=== PATIENT | female | born 1970 | race Caucasian/White ===

== ENCOUNTER 2020-07-22 05:28 | Day surgery (SDC) | payer BC ==
[2020-07-22] MEDS ORDERED: Dextrose 5%-Lactated Ringers 1,000 ML IV SCH (06:00)
[2020-07-22] MEDS ORDERED: fentaNYL 100 MCG/2 ML SDV ONE (07:07)
[2020-07-22] MEDS ORDERED: Midazolam 1 MG/ML 2 ML SDV ONE (07:07)
[2020-07-22] MEDS ORDERED: Propofol 200 MG/20 ML SDV ONE (07:07)
[2020-07-22] MEDS ORDERED: Glycopyrrolate 0.2 MG/ML 2 ML SDV IVPUSH ONE (07:15)
--- NOTE | 2020-07-28 15:53 | OR ---
DATE OF PROCEDURE: 07/22/2020 SURGEON: Tawanda James MD PREOPERATIVE DIAGNOSES: Intermittent dysphagia and heartburn. POSTOPERATIVE DIAGNOSES: 1. Intermittent dysphagia and heartburn. 2. Moderately large hiatal hernia with actively ulcerated gastroesophageal reflux disease. OPERATIVE PROCEDURE: Upper gastrointestinal endoscopy with: 1. Biopsy of esophagogastric junction. 2. Biopsies of antrum for CLOtest. ANESTHESIA: IV sedation. INDICATIONS FOR PROCEDURE: A 49-year-old presenting with worsening problems with gastroesophageal reflux disease. She has some intermittent dysphagia, although a relatively minor complaint on close questioning, but does have some active heartburn. She previously had been on Zantac which she was taken off because of the concerns regarding carcinogens present in the medications and has been on Protonix for a few days, but has noted only a slight improvement of her symptoms with that. Plan is to proceed with upper GI endoscopy with biopsies and/or dilation as indicated. Potential risks including bleeding and perforation were discussed, and the patient wishes to proceed. DETAILS OF PROCEDURE: The patient was taken to the operating room, placed in a left lateral decubitus position. IV sedation was administered after which the upper GI endoscope was passed orally through the length of the esophagus and stomach with retroflexion view of the fundus and thereafter through the pyloric channel and into the proximal duodenum. Findings included normal hypopharynx, larynx, upper esophageal sphincter. Within the esophageal body, there was no furrowing or suggestion of eosinophilic esophagitis. At the EG junction, the patient did have a moderately large hiatal hernia measuring around 4 to 5 cm. This had actively ulcerated gastroesophageal reflux disease with several linear ulcers extending up from the esophagogastric junction. No stricturing was seen. Overall, the esophagogastric junction was completely wide open, so at this point, there was no significant barrier function between the stomach and the esophagus. The remainder of the stomach and duodenal exams were unremarkable. At this point, biopsies were obtained from esophagogastric junction, sent for histologic evaluation, and then biopsies also then obtained from the antrum and sent for CLOtest for H. pylori. Minimal bleeding from the biopsy sites was seen and the procedure was then concluded. The patient was taken to the recovery room in satisfactory condition. The patient expressed some interest in not having to be on medications long-term and potential surgical options were discussed with the patient and . We will see the patient back on Wednesday, i.e., in 48 hours to discuss the treatment options somewhat further. Tawanda James MD /[id number]
== END 2020-07-22 09:42 | disposition home or self-care (01) ==
LOC: JP.SDS 05:28
PROVIDERS: ATTEND Surgery
DX: K22.8 Other specified diseases of esophagus (principal); K44.9 Diaphragmatic hernia without obstruction or gangrene; K21.9 Gastro-esophageal reflux disease without esophagitis; K22.10 Ulcer of esophagus without bleeding; Z88.5 Allergy status to narcotic agent; Z88.6 Allergy status to analgesic agent
CPT/HCPCS: 43239; 87081; 88305; J2250; J2704; J3010; J3490; J7121

== ENCOUNTER 2020-07-26 08:52 | Inpatient (IN) | payer BC ==
[~2020-07-26 08:52] MED LIST: Bupivacaine 0.5% 50 ML MDV ONE; Dexamethasone 4 MG/ML SDV ONE; Glycopyrrolate 0.2 MG/ML 5 ML MDV ONE; Lidocaine 1% with EPINEPHrine 1:100,000 50 ML MDV ONE; Neostigmine Methylsulfate 1 MG/ML 5 ML Syringe ONE; Ondansetron 4 MG/2 ML SDV ONE; Propofol 200 MG/20 ML SDV ONE; Rocuronium 50 MG/5 ML Vial ONE; Succinylcholine 200 MG/10 ML MDV ONE; fentaNYL 250 MCG/5 ML SDV ONE
[2020-07-26] MEDS ORDERED: Celecoxib 200 MG Cap PO ONE (09:00)
[2020-07-26] MEDS ORDERED: Scopolamine 1.5 MG Transdermal Patch TOP SCH (09:15)
[2020-07-26] MEDS ORDERED: Dextrose 5%-Lactated Ringers 1,000 ML IV SCH ×2 (10:00→14:00)
[2020-07-26] MEDS ORDERED: ceFAZolin 2 GM in Premix Bag 1 BAG IV ONE (10:15)
[2020-07-26] MEDS ORDERED: Ropivacaine 38 ML, dexAMETHasone 8 MG, EPINEPHrine 0.4 MG, Sodium Chloride 0.9% 39.6 ML NERVRT SCH ×4 (11:00)
[2020-07-26] MEDS ORDERED: fentaNYL 250 MCG/5 ML SDV ONE (11:37)
[2020-07-26] MEDS ORDERED: fentaNYL 100 MCG/2 ML SDV ONE (12:14)
[2020-07-26] MEDS ORDERED: Labetalol 20 MG/4 ML Syringe ONE (12:28)
[2020-07-26] MEDS ORDERED: Ketamine 500 MG/5 ML MDV IV SCH (12:30)
[2020-07-26] MEDS ORDERED: Ketamine 50 MG in Sodium Chloride 0.9% 49.5 ML IV SCH (12:30)
[2020-07-26] MEDS ORDERED: Lactated Ringers 1,000 ML ONE (12:45)
[2020-07-26] MEDS ORDERED: HYDROmorphone 0.5 MG/0.5 ML Syringe IVPUSH PRN (14:00)
[2020-07-26] MEDS ORDERED: Ondansetron 4 MG/2 ML SDV IVPUSH PRN (14:01)
[2020-07-26] MEDS ORDERED: HYDROmorphone 1 MG/ML Syringe IV PRN (14:01)
[2020-07-26] MEDS: Pantoprazole 40 MG Vial IV SCH (16:00)
[2020-07-26] MEDS: Metoclopramide 10 MG/2 ML SDV IV SCH ×2 (16:00→22:59)
[2020-07-26] MEDS: VERIFY SCOP PATCH TOP SCH (16:01)
[2020-07-26] MEDS: ceFAZolin 2 GM in Premix Bag 1 BAG IV SCH (17:53)
[2020-07-26] MEDS: HYDROmorphone 2 MG Tab PO PRN ×2 (18:05→22:59)
[2020-07-27] MEDS: ceFAZolin 2 GM in Premix Bag 1 BAG IV SCH ×2 (02:42→10:32)
[2020-07-27] MEDS: HYDROmorphone 2 MG Tab PO PRN ×4 (02:44→22:16)
[2020-07-27] MEDS ORDERED: methylPREDNISolone Sodium Succinate 40 MG/1 ML SDV IVPUSH ONE (06:44)
[2020-07-27] MEDS: Metoclopramide 10 MG/2 ML SDV IV SCH ×2 (07:27→15:37)
[2020-07-27] MEDS ORDERED: Dextrose 5%-Lactated Ringers 1,000 ML IV SCH (08:15)
[2020-07-27] MEDS: VERIFY SCOP PATCH TOP SCH (10:32)
[2020-07-27] MEDS: Pantoprazole 40 MG Vial IV SCH (15:37)
[2020-07-27] MEDS ORDERED: methylPREDNISolone Sodium Succinate 125 MG/2 ML SDV IV SCH (16:00)
[2020-07-28] MEDS: HYDROmorphone 2 MG Tab PO PRN ×2 (03:30→08:31)
[2020-07-28] MEDS ORDERED: Pantoprazole 40 MG Tab.CR PO SCH (08:00)
[2020-07-28] MEDS ORDERED: predniSONE 20 MG Tab PO ONE (08:30)
--- NOTE | 2020-07-28 16:51 | OR ---
DATE OF PROCEDURE: 07/26/2020 SURGEON: Tawanda James MD PREOPERATIVE DIAGNOSIS: Gastroesophageal reflux disease, refractory to medical management. POSTOPERATIVE DIAGNOSES: 1. Gastroesophageal reflux disease, refractory to medical management, with moderate-sized paraesophageal diaphragmatic hernia. 2. Mediastinal lipoma. 3. Small cystic peritoneal nodules in the anterior aspect of the gastric cardia x2. OPERATIVE PROCEDURE: Diagnostic laparoscopy with: 1. Laparoscopic Arturo fundoplication with repair of paraesophageal diaphragmatic hernia with mesh (17089). 2. Excision of mediastinal lipoma (86228). 3. Excision of peritoneal nodules on the anterior aspect of gastric cardia x2 (25071 x2). ANESTHESIA: General. ASSISTANTS: 1. Lauryn Griffin PA-C. 2. DARREN Orozco student. INDICATIONS FOR PROCEDURE: This is a 49-year-old female, presenting with ongoing gastroesophageal reflux disease that has become refractory to medical management. After preoperative evaluation and discussion, she wished to proceed with a Arturo fundoplication. Potential risks of the procedure including bleeding, infection, injury to underlying viscera, and possible problems with the fundoplication such as dysphagia that might require a revisional procedure, problems with gastric emptying, gas bloat syndrome as well as possible incomplete relief of reflux symptoms either in the short or long-term were gone over along with the remote possibility of cardiopulmonary, septic, or hemorrhagic complications leading to were discussed, and the patient wishes to proceed. The patient's recent upper endoscopic biopsies showed ongoing inflammation at the esophagogastric junction. There were some increasing eosinophils, but the patient does not have significant allergic symptoms and there were no endoscopic findings suggestive of eosinophilic esophagitis and the patient had a large hiatal hernia with ulcerated gastroesophageal reflux disease at the esophagogastric junction, all consistent with an otherwise straightforward gastroesophageal reflux disease status. DETAILS OF PROCEDURE: The patient was taken to the operative room, placed in a supine position. After general endotracheal anesthesia was induced, she was converted to a lithotomy position and the abdomen was prepped and draped. 15 cm inferior and 5 cm left of the xiphoid process, transverse incision was made and the peritoneal cavity inflated to 15 mmHg pressure with CO2. Laparoscope was reinserted. No underlying trocar insertion site injuries were seen. Bilateral subcostal transversus abdominis plane blocks were then placed and four additional trocars were placed across the upper and mid abdomen. Upon elevation of the liver, the patient was noted to have two small cystic peritoneal nodules on the gastric cardia. This was in a location somewhat lower than would be involved in the fundoplication. These measured 1 to 2 mm in size and were by roughly a centimeter apart. All of these were excised and sent for histologic evaluation. The patient was noted to have a moderate-sized paraesophageal diaphragmatic hernia with prolapse of perigastric fat, some gastric cardia and fundus, along with some omentum. The hernia was reduced at this point and the peritoneum overlying incised and reflected downward. During the course of the crural dissection, the patient was noted to have a mediastinal lipoma, which was excised. Eventually, the distal esophagus was encircled and dissected free so as to obtain a 4 to 5 cm length of intraabdominal esophagus. The crural repair was accomplished with some 0 Ethibond sutures reinforced with PTFE pledgets to the size of the defect. This was reinforced with Phasix ST mesh placed with a horseshoe-type configuration over the crural repair and fixed to the crura on each side with some titanium tacking screws. The omentum was divided away from the proximal gastric fundus with Harmonic Scalpel. This dissection continued upward to and through the short gastric vessels including the posterior and highest short gastric vessels. This resulted in a nicely mobile fundus, which was retrieved through the retroesophageal window. Anesthesia then passed a guidewire orally across the esophagus and into the stomach and over this a 54-Tajik dilator was placed. A 2 cm 3-stitch fundoplication was accomplished with 0 Ethibond sutures reinforced with PTFE pledgets. Upon completion of the fundoplication sutures, two sutures were then placed between the diaphragm and the fundoplication with the same suture pledget combination to help fix the fundoplication in position. The dilator and guidewire were removed at this point and the patient was inspected, found to be satisfactorily floppy. No further problems were noted. At this point, the trocars were removed and the peritoneal cavity deflated. Incisions were closed with some 4-0 Vicryl skin stitch and the patient taken to the recovery room in satisfactory condition. Physician metal forger's assistant, Lauryn Griffin, played an essential role in assisting in this case, helping to position the patient, retract structures as needed and cutting sutures when indicated. Her presence improved patient safety and decreased the operative time. Tawanda James MD /[id number]
--- NOTE | 2020-07-28 17:27 | PN ---
DATE OF SERVICE: 07/27/2020 The patient is postop day 1 from a laparoscopic Arturo fundoplication. She feels a little bit tight, and I think we will give her a course of IV steroids over the next 24 hours. Otherwise, begin a full liquid diet. She is already on oral pain medications at this point and will likely be ready for discharge home tomorrow. Tawanda James MD /[id number]
--- NOTE | 2020-07-28 18:45 | DISCH ---
FINAL DIAGNOSES: 1. Gastroesophageal reflux disease refractory to medical management with moderate-sized paraesophageal diaphragmatic hernia. 2. Mediastinal lipoma. 3. Small cystic peritoneal nodules on the anterior aspect of the gastric cardia. OPERATIVE PROCEDURES: 1. Laparoscopic Arturo fundoplication with repair of paraesophageal diaphragmatic hernia with mesh. 2. Excision of mediastinal lipoma. 3. Excision of peritoneal nodules on the anterior aspect of gastric cardia x2. SUMMARY: This is a 49-year-old presenting with worsening gastroesophageal reflux disease associated with some dysphagia, but the upper endoscopy done earlier showed a large hiatal hernia with active ulcerated gastroesophageal reflux disease accounting for the patient's episodes of dysphagia. The biopsies raised some question of eosinophilic esophagitis, but based on the clinical and endoscopic findings, the picture was consistent with reflux esophagitis. After preoperative evaluation and discussion, she wished to proceed with a Arturo fundoplication that was done on the date of admission along with augmentation of the crural repair with a dissolvable mesh. The mediastinal lipoma was also removed and the patient had 2 tiny 1 to 2 mm cystic duct nodules on the anterior aspect of the gastric cardia which were excised and sent for histologic evaluation. Postoperatively, the patient had a little bit in the way of dysphagia on postop day 1, was started on some Solu-Medrol and will be discharged home on a Medrol Dosepak which seems to help with the early postoperative dysphagia in these cases, and otherwise, she will be off the Protonix at this point, and Dilaudid 2 mg q.4 hours p.r.n. pain, #40 will be written. Follow up with Dr. James at [facility] on 08/07/2020. /[id number]
== END 2020-07-28 09:20 | disposition home or self-care (01) | DRG 220 ==
LOC: JP.SDS 08:52 → JP.MS 08:52 → EDSTATUS 14:15
PROVIDERS: ADMIT Surgery; ATTEND Surgery
PROC: 0WBC4ZZ Excision of Mediastinum, Percutaneous Endoscopic Approach (ICD-10-PCS; principal; 2020-07-26)
PROC: 0DB64ZZ Excision of Stomach, Percutaneous Endoscopic Approach (ICD-10-PCS; principal; 2020-07-26)
PROC: 0DQ44ZZ Repair Esophagogastric Junction, Percutaneous Endoscopic Approach (ICD-10-PCS; 2020-07-26)
PROC: 0BUT4JZ Supplement Diaphragm with Synthetic Substitute, Percutaneous Endoscopic Approach (ICD-10-PCS; 2020-07-26)
DX: K44.9 Diaphragmatic hernia without obstruction or gangrene (principal); K21.9 Gastro-esophageal reflux disease without esophagitis; D17.79 Benign lipomatous neoplasm of other sites; R13.10 Dysphagia, unspecified
CPT/HCPCS: 94762; A9270-GY; C1713; C1781; C9113; J0171; J0330; J0690; J1100; J2405; J2704; J2710; J2765; J2795; J2920; J2930; J3010; J3490; J7120; J7121; J7512

== ENCOUNTER → 2022-01-15 | Day surgery (SDC) | payer BC ==
[~2022-01-15] MED LIST changes: -Bupivacaine 0.5% 50 ML MDV ONE; -Dexamethasone 4 MG/ML SDV ONE; -Glycopyrrolate 0.2 MG/ML 5 ML MDV ONE; +Lactated Ringers 1,000 ML IV SCH; -Lidocaine 1% with EPINEPHrine 1:100,000 50 ML MDV ONE; +Midazolam 1 MG/ML 2 ML SDV ONE; -Neostigmine Methylsulfate 1 MG/ML 5 ML Syringe ONE; -Ondansetron 4 MG/2 ML SDV ONE; -Rocuronium 50 MG/5 ML Vial ONE; -Succinylcholine 200 MG/10 ML MDV ONE; +fentaNYL 100 MCG/2 ML SDV ONE; -fentaNYL 250 MCG/5 ML SDV ONE
== END ==
LOC: JP.SDS 08:20
PROVIDERS: ATTEND Family Medicine
DX: Z12.11 Encounter for screening for malignant neoplasm of colon (principal); K21.9 Gastro-esophageal reflux disease without esophagitis; Z88.5 Allergy status to narcotic agent; Z88.8 Allergy status to other drugs, medicaments and biological substances; Z87.891 Personal history of nicotine dependence
CPT/HCPCS: 45378; J2250; J2704; J3010; J7120